=== PATIENT | male | born 1985 | race Caucasian/White ===

== ENCOUNTER 2018-11-29 16:30 | Emergency (ER) | payer OTHER ==
[~2018-11-29] VITALS: Ht 175.3 cm; Wt 90.7 kg
[2018-11-29] MEDS ORDERED: MORPHINE SULFATE 4 MG/ML VIAL. IV ONE ×2 (16:45→17:30)
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
[2018-11-29] MEDS ORDERED: LIDOCAINE 1%/EPI 1:100,000 20 ML VIAL. ONE (17:24)
[2018-11-29] MEDS ORDERED: CEPH-264 PO (17:53)
[2018-11-29] MEDS ORDERED: ACET-704 PO (17:53)
[2018-11-29] MEDS ORDERED: NEOMY/BACITR/POLYMYXIN OINT PACKET. TP ONE (18:00)
[2018-11-29 18:15] VITALS: BP 128/84
--- NOTE | 2018-11-29 19:05 | RAD ---
Three-view left knee radiographs 11/29/2018 CLINICAL HISTORY: Left knee pain post injury. AP, lateral and oblique digital radiographs ofthe left knee were obtained. No fracture or dislocation of the left knee is seen. There is no radiographic evidence of a joint effusion. IMPRESSION: No fracture or dislocation of the left knee is seen Electronically signed by: Karl Francis MD (11/29/2018 7:02 PM) [facility]
== END 2018-11-29 18:28 | disposition home or self-care (01) ==
LOC: ER 16:30
DX: S81.012A Laceration without foreign body, left knee, initial encounter (principal); V59.9XXA Occupant (driver) (passenger) of pick-up truck or van injured in unspecified traffic accident, initial encounter; Y93.89 Activity, other specified; Y92.89 Other specified places as the place of occurrence of the external cause; Y99.0 Civilian activity done for income or pay
CPT/HCPCS: 12001; 73562; 96374; 96376; 99284; J2270